=== PATIENT | female | born 1955 | race Caucasian/White ===

== ENCOUNTER 2020-01-18 07:58 | Day surgery (SDC) | payer MEDICARE, OTHER ==
[~2020-01-18] VITALS: Ht 172.7 cm; Wt 131.1 kg
[~2020-01-18 07:58] MED LIST: ADULT ASPIRIN R81 MG PO; CALCIUM + D3 E1 EACH PO; CENTRUM SILVER1 EAC3 PO; LEVOTHYROXINE100 MCG PO
--- NOTE | 2020-01-18 09:50 | NUR ---
PT ALERT, ORIENTED AND SEEMED TO BE STRESSING SOMEWHAT GETTING INTO BED. PT MENTIONED THAT SHE HAD SCOPE 10 YRS AGO, GAVE ENCOURAGEMENT-RN JULIET IN TO PREP PT. GAVE BLESSING, WILL FOLLOW
--- NOTE | 2020-01-18 10:37 | NUR ---
01/18/20 Radha Baptiste 1033-PATIENT ARRIVED TO PACU ON 2L NC AWAKE DROWSY DENIES PAIN OR NAUSEA. LAYING LEFT LATERAL. ABDOMEN SOFT ENCOURAGED TO PASS GAS. IVF INFUSING. HOB ELEVATED.
--- NOTE | 2020-01-19 10:11 | OR ---
[facility] [address] [place], [place] [address] Signed DATE OF OPERATION: 01/18/2020 SURGEON: Lee Stovall MD PREOPERATIVE DIAGNOSES: 1. Possible history of colonic polyps in her mother. 2. Hyperplastic colonic polyps in 2009. 3. Internal and external hemorrhoids. POSTOPERATIVE DIAGNOSES: 1. A 4 mm polyp, proximal right colon (in the ileocecal valve). 2. A 5 mm polyp at 10 cm/rectum. 3. Lcmzrwd-bo-ukjdeqmz sigmoid diverticulosis. PROCEDURE: Colonoscopy with hot biopsy. ESTIMATED BLOOD LOSS: None. INDICATIONS: Jt is a 65-year-old lady, asked to see me for followup colonoscopy. She nor her mother can specifically remember the history of colonic polyps in her mother; however, it is in her notes. She has moved up to [place] to be with her mom. She told me her mom has been for colonoscopy in quite a few years. Jt had hyperplastic polyps removed back in 2009. She describes internal and external hemorrhoids for years. She has had Preparation H or Proctosol cream works out quite well, otherwise no lower GI complaints. In the office, I gave her a pamphlet on colonoscopy. We looked at that together along with the risks including, but not limited to gas bloating, crampy abdominal pain, bleeding, perforation requiring surgery, and missed diagnosis. She also understands the need for IV conscious sedation. She had expressed understanding and wished to proceed. DESCRIPTION OF PROCEDURE: Jt was taken into our endoscopy suite and placed in the left lateral decubitus position. She was given a total of 150 mcg of fentanyl and 6 mg of Versed. A digital rectal exam had been performed, not much really in the way of external hemorrhoids. Good sphincter tone. The adult colonoscope was introduced and advanced all around into the cecum under direct visualization of camera. It took some extra sedation and abdominal compression in order to advance the scope. We could easily see the Electronically Signed By: LEE STOVALL MD 01/19/20 1011 PATIENT NAME: JT NOONAN OPERATIVE REPORT DATE OF : 57 REPORT #: [id number] PHYSICIAN: LEE STOVALL MD PCP: EMILIANA KERR PAC REPORT IS CONFIDENTIAL AND NOT TO BE RELEASED WITHOUT AUTHORIZATION [facility] [address], [place] [address] Signed appendiceal orifice and the ileocecal valve. Just to the side of the ileocecal valve, there is a very tiny polypoid lesion. We went ahead and removed it with the help of our hot biopsy forceps. Her prep was quite excellent. We took pictures throughout for photodocumentation. She does have moderate diverticula in the sigmoid colon. They were sdgcoim-st-ulhobuph in number, moderate in size and scattered about. At 10 cm in the rectum was also a tiny polyp removed with a hot biopsy forceps. Upon retroflexion of scope, we could see scar polypectomy site just above the anal canal. She has some very tiny internal anal skin tags, really not much in the way of internal hemorrhoids. After this, the gas was suctioned out. The colonoscope removed. Jt tolerated the procedure quite well. RECOMMENDATIONS: I will see Jt back in my office in 7 to 14 days to review her results. She may ends up more than likely she will stay on the 10-year rotation. Lee Stovall MD ALB/MODL /[id number] cc: Lee Stovall MD Copies: LEE STOVALL MD ~ Electronically Signed By: LEE STOVALL MD 01/19/20 1011 PATIENT NAME: JT NOONAN OPERATIVE REPORT DATE OF : 57 REPORT #: [id number] PHYSICIAN: LEE STOVALL MD PCP: EMILIANA KERR PAC REPORT IS CONFIDENTIAL AND NOT TO BE RELEASED WITHOUT AUTHORIZATION
--- NOTE | 2020-01-25 09:38 | PATH ---
[facility] [address] [place], [place] [address] Signed SPECIMEN(S): A COLON POLYP AT 10 CM SPECIMEN(S): B PROXIMAL ASCENDING POLYP SPECIMEN SOURCE: A. COLON POLYP AT 10 CM B. PROXIMAL ASCENDING POLYP CLINICAL HISTORY: Colonoscopy. History of polyp. Postop: Rectal polyp, colon polyp, diverticulosis. MICROSCOPIC DESCRIPTION: Histologic sections of all submitted blocks are examined by light microscopy. These findings, together with the gross examination, support the pathologic diagnosis. FINAL PATHOLOGIC DIAGNOSIS: A. Colon, polyp at 10 cm, polypectomy: - Hyperplastic polyp. - Negative for dysplasia or malignancy. B. Colon, proximal ascending, polyp, polypectomy: - Colonic mucosa with no histopathologic abnormality. - Negative for dysplasia or malignancy. NAL:vlg:C2NR GROSS DESCRIPTION: Two specimens are received in two containers, labeled "RR." A. The specimen, labeled "RR, colon polyp at 10 cm," is received in formalin and consists of two burgess soft tissue fragments that measure 0.3 cm in greatest dimension. The specimen is entirely submitted in cassette (A1). B. The specimen, labeled "RR, proximal ascending colon polyp," is received in formalin and consists of one burgess soft tissue fragment that measures 0.2 cm in greatest dimension. The specimen is entirely submitted in cassette (B1). JS (under the direct supervision of a pathologist) The Gross Description was prepared using a voice recognition system. The report was reviewed for accuracy; however, sound-alike word errors, addition and/or deletions may occur. If there is any question about this report, please contact Client Services. PERFORMING LABORATORY: PATIENT NAME: JT NOONAN PATHOLOGY DATE OF : 57 REPORT #: [id number] PHYSICIAN: MARGRET ROSA PCP: EMILIANA KERR PAC REPORT IS CONFIDENTIAL AND NOT TO BE RELEASED WITHOUT AUTHORIZATION [facility] [address] [place] [address] Signed The technical component was performed [place] [address] (Customer Service Representative Teacher: Michelle Taylor MD; CLIA# [id number]). Professional interpretation was performed by [employer] [facility] [address] [address] (CLIA# [id number]). Diagnostician: Alexandra Silverman MD Pathologist Electronically Signed 01/20/2020 Copies: ~ PATIENT NAME: JT NOONAN PATHOLOGY DATE OF : 57 REPORT #: [id number] PHYSICIAN: MARGRET ROSA PCP: EMILIANA KERR PAC REPORT IS CONFIDENTIAL AND NOT TO BE RELEASED WITHOUT AUTHORIZATION
== END 2020-01-18 11:00 | disposition home or self-care (01) ==
LOC: OPS 07:58 → DS 09:45 → OPS 11:00
PROVIDERS: ATTEND Colon & Rectal Surgery
PROC: 0DBP8ZZ Excision of Rectum, Via Natural or Artificial Opening Endoscopic (ICD-10-PCS; 2020-01-18)
PROC: 0DBK8ZZ Excision of Ascending Colon, Via Natural or Artificial Opening Endoscopic (ICD-10-PCS; principal; 2020-01-18 09:45)
DX: K62.1 Rectal polyp (principal); K64.8 Other hemorrhoids; K57.30 Diverticulosis of large intestine without perforation or abscess without bleeding; I10 Essential (primary) hypertension; E78.5 Hyperlipidemia, unspecified; E55.9 Vitamin D deficiency, unspecified; E03.9 Hypothyroidism, unspecified; E66.9 Obesity, unspecified; Z86.010 Personal history of colon polyps; Z79.899 Other long term (current) drug therapy; Z79.82 Long term (current) use of aspirin; Z68.43 Body mass index [BMI] 50.0-59.9, adult
CPT/HCPCS: 88305; 99153; G0500; J2250; J3010